=== PATIENT | male | born 1965 | race Caucasian/White ===

== ENCOUNTER → 2021-05-24 | Emergency (ER) | payer MEDICAID ==
[~2021-05-24] VITALS: Ht 172.7 cm; Wt 104.3 kg
[~2021-05-24] MED LIST: ACETAMINOPHEN 325 MG TABLET ONE; AMLO10TA59 PO; ASPI81TA31 PO; ATOR40TA PO; CARV25TA PO; IOHEXOL 350 100 ML INFUS..BTL ONE; IV NORMAL SALINE 250 ML IV ONE; KETOROLAC TROMETHAMINE 15 MG INJ ONE; MAGNESIUM SULFATE/D5W 100 ML ONE; POTASSIUM CHLORIDE 20 MEQ TAB.PRT.SR ONE; SWABABLE VALVE TRANSFER SET EA MC ONE; TICA90TA PO
[2021-05-24] MEDS: IV NORMAL SALINE 500 ML BAG IV ONE (11:32)
[2021-05-24 11:43] LABS: ABG BASE EXCESS 3.8 mmol/L; ABG HCO3 26.2 mmol/L; ABG PCO2 32.2 mmHg (35.0-45.0); ABG PH 7.529 (7.350-7.450); ABG PO2 74.2 mmHg (75.0-100.0); ABG SITE LEFT BRACHIAL; ABG TOTAL HEMOGLOBIN 11.1 G/dL (13.5-18.0); COHb 0.3 % (0.5-1.5); O2Hb 95.2 % (94.0-97.0); VENT MODE ROOM AIR
[2021-05-24 11:45] LABS: HEMATOCRIT 30.1 % (36.7-47.1); MEAN CORPUSCULAR HEMOGLOBIN 29.8 uug (23.8-33.4); MEAN CORPUSCULAR VOLUME 84.8 fL (73.0-96.2); PLATELET COUNT (AUTO) 257 K/uL (152-348)
[2021-05-24 12:07] LABS: BILIRUBIN,TOTAL 0.6 mg/dL (0.2-1.0); CREATININE 1.2 mg/dL (0.6-1.3); TOTAL PROTEIN, SERUM 7.4 g/dL (6.4-8.2)
[2021-05-24 12:09] LABS: POTASSIUM 2.6 mmol/L (3.5-5.1)
[2021-05-24] MEDS: POTASSIUM CHLORIDE 20 MEQ TAB.PRT.SR PO ONE (12:46)
[2021-05-24] MEDS: MAGNESIUM SULFATE/D5W 100 ML IV SCH (13:00)
[2021-05-24] MEDS: ACETAMINOPHEN 325 MG TABLET PO ONE (13:10)
--- NOTE | 2021-05-24 13:11 | NUR ---
MEDICATED FOR CHRONIC BACKPAIN. BM X1.
[2021-05-24] MEDS: KETOROLAC TROMETHAMINE 15 MG INJ IVP ONE (14:34)
--- NOTE | 2021-05-24 14:36 | NUR ---
back from ct scan. c/o increasing backpain - restless. medicated as per md order.
--- NOTE | 2021-05-24 15:19 | NUR ---
PT CALLED TO SHOW THAT IV SALINE LOCK PULLED OUT - STATES IT WAS ACCIDENTAL WHILE HE WAS TURNING AROUND BECAUSE HE HAS BACKPAIN- PREVIOUSLY SHORTLY MEDICATED WITH TORADAL IV FOR SAME COMPLAINT. PT ALSO REMOVED MONITOR LEADS AND PULSOX ON HIS OWN STATING HE MADE HIM UNCOMFORTABLE.
== END ==
LOC: ER 10:57
DX: R06.02 Shortness of breath (principal); R52 Pain, unspecified; Z20.822 Contact with and (suspected) exposure to COVID-19; E87.6 Hypokalemia; I10 Essential (primary) hypertension; I25.10 Atherosclerotic heart disease of native coronary artery without angina pectoris; Z95.5 Presence of coronary angioplasty implant and graft; R94.31 Abnormal electrocardiogram [ECG] [EKG]; Z79.899 Other long term (current) drug therapy
CPT/HCPCS: 36415; 36600; 71045; 71275; 80053; 83880; 84484; 85025; 87426; 93005; 96361; 96365; 96366; 96375; 99285; J1885; J3475 ×2; Q9967; 70030-TC; A4663; J7040; J7050